=== PATIENT | female | born 1945 | race Caucasian/White ===

== ENCOUNTER 2022-01-06 10:36 | Outpatient (CLI) | payer MEDICARE, BC ==
[~2022-01-06 10:36] MED LIST: LOSA25TA96 PO
== END 2022-01-06 23:59 | disposition home or self-care (01) ==
LOC: VAS 10:36
PROVIDERS: ATTEND Physician Assistant
DX: M79.89 Other specified soft tissue disorders (principal)
CPT/HCPCS: 93971

== ENCOUNTER 2024-04-22 20:53 | Emergency (ER) | payer MEDICARE, BC ==
[~2024-04-22] VITALS: Ht 167.6 cm; Wt 90.9 kg
[~2024-04-22 20:53] MED LIST changes: +LOSA-415 PO; -LOSA25TA96 PO
[2024-04-22 21:40] LABS: BASOPHILS # (AUTO) 0.1 X10'3 (0-0.2); BASOPHILS % (AUTO) 0.9 % (0-1); EOSINOPHILS # (AUTO) 0.1 X10'3 (0-0.9); EOSINOPHILS % (AUTO) 2.1 % (0-6); HEMATOCRIT 41.1 % (35.0-45.0); LYMPHOCYTES # (AUTO) 2.3 X10'3 (1.1-4.8); LYMPHOCYTES % (AUTO) 33.7 % (21-51); MEAN CORPUSCULAR HEMOGLOBIN 31.1 PG (27.0-31.0); MEAN CORPUSCULAR HGB CONC 34.1 g/dL (33.0-36.5); MEAN CORPUSCULAR VOLUME 91.3 FL (78-98); MEAN PLATELET VOLUME 7.8 FL (7.4-10.4); MONOCYTES # (AUTO) 0.5 X10'3 (0-0.9); MONOCYTES % (AUTO) 7.5 % (2-12); NEUTROPHILS # (AUTO) 3.8 X10'3 (1.8-7.7); NEUTROPHILS % (AUTO) 55.8 % (42-75); PLATELET COUNT 228 X10'3 (140-440); RED BLOOD COUNT 4.51 X10'6 (4.20-5.60); RED CELL DISTRIBUTION WIDTH 12.7 % (11.5-14.5); WHITE BLOOD COUNT 6.8 X10'3 (4.5-11.0)
[2024-04-22 22:00] LABS: ALANINE AMINOTRANSFERASE 39 U/L (12-78); ALBUMIN 3.9 G/DL (3.4-5.0); ALBUMIN/GLOBULIN RATIO 1.2 (1.1-1.5); ALKALINE PHOSPHATASE 69 IU/L (46-116); ANION GAP 10 (8-16); ASPARTATE AMINO TRANSFERASE 20 U/L (10-37); BILIRUBIN,TOTAL 0.5 MG/DL (0.1-1.0); BLOOD UREA NITROGEN 18 MG/DL (7-18); BUN/CREATININE RATIO 22.2 (10.0-20.0); CALCIUM 9.3 MG/DL (8.5-10.1); CHLORIDE 103 MMOL/L (99-107); CREATININE 0.81 MG/DL (0.40-0.90); GLUCOSE 97 MG/DL (70-104); POTASSIUM 3.7 MMOL/L (3.5-5.1); SODIUM 141 MMOL/L (135-145); TOTAL CARBON DIOXIDE 27.7 MMOL/L (24-32); TOTAL PROTEIN 7.1 G/DL (6.4-8.2); eCRCL 55 ML/MIN; eGFR 69 ML/MIN
[2024-04-22 22:05] LABS: PRO BRAIN NATRIURETIC PEPTIDE 55 PG/ML (0-450)
[2024-04-23 00:30] VITALS: TEMP 98
[2024-04-23 01:56] VITALS: BP 151/87; PULSE 76; RESP 16; O2SAT 98
== END 2024-04-23 02:01 | disposition home or self-care (01) ==
LOC: ER 20:54
DX: I10 Essential (primary) hypertension (principal); E78.00 Pure hypercholesterolemia, unspecified; R51.9 Headache, unspecified; M54.2 Cervicalgia; M25.519 Pain in unspecified shoulder; Z88.5 Allergy status to narcotic agent; Z90.49 Acquired absence of other specified parts of digestive tract; Z90.710 Acquired absence of both cervix and uterus
CPT/HCPCS: 36415; 71045; 80053; 83880; 84484; 85025; 93005; 99285

== ENCOUNTER 2024-11-24 06:59 | Emergency (ER) | payer BC, MEDICARE ==
[~2024-11-24] VITALS: Ht 167.6 cm; Wt 90.0 kg
[2024-11-24 07:34] LABS: LEUKOCYTE ESTERASE ,URINE MODERATE (Neg); NITRITES, URINE POSITIVE (Neg); OCCULT BLOOD,URINE MODERATE (Neg)
[2024-11-24 07:43] LABS: UA COLLECTION TYPE CLN CATCH MIDSTREAM
[2024-11-24 07:44] LABS: MUCUS STRANDS NONE SEEN /LPF (Neg); SQUAMOUS EPITHELIAL CELL,UR FEW /LPF (FEW)
--- NOTE | 2024-11-24 08:34 | Physician Documentation ---
History of Present Illness ~ Chief Complaint: Urinary Symptoms Stated Complaint: UTI Time Seen by MD: 07:41 Primary Medical Doctor: COSME ROLLE Source: patient, family () HPI 79 yof p/w suprapubic pain dysuria. Just completed 10 day course of penicillin for UTI. Has had 4 infections this year. Medication Reconciliation Allergies: Coded Allergies: codeine (Unverified Allergy, Unknown, 07/15/15) tetracycline (Unverified Allergy, Unknown, 07/15/15) Scheduled Cephalexin (Cephalexin), 1 CAP PO Q6H Losartan Potassium* (Cozaar*), 2 TABLET PO DAILY, (Reported) Past Medical History Past Medical History: High Cholesterol Past Surgical History: appendectomy, cholecystectomy, , hysterectomy, tonsillectomy Alcohol Use: None Review of Systems All Other Systems at this time: Reviewed and Negative Constitutional: Denies: fever Physical Exam Vital Signs: Temperature: 98.0, Source: Oral, Heart Rate: 71, Respiratory Rate: 15, BP: 142/82, Pulse Oximetry: 97, Weight: 90.000 Oxygen Flow Rate: 0 Physical Exam well appearing no distress awake alert oriented abd soft non tender suprapubic ttp. Progress Results/Orders Reviewed/noted all lab results: Yes Results/Orders Orders - KIP OZUNA MD Cult Urine + Fate Ct (11/24/24 07:44) Completed Orders - KIP OZUNA MD Ua W/Microscopic, Cult If Ind (11/24/24 07:00) Vital Signs 11/24/24 11/24/24 07:04 07:45 Temp 98.0 98.0 Pulse 82 71 Resp 16 15 B/P (MAP) 170/89 142/82 (102) Pulse Ox 97 97 O2 Flow Rate 0 0 Laboratory Tests Test 11/24/24 07:00 Urine Specimen Description Cln catch midstream Urine Color Yellow Urine Clarity Clear Urine pH 6.5 Urine Specific Palmer <=1.005 Urine Protein Trace Urine Glucose (UA) 100 H Urine Ketones Negative Urine Occult Blood Moderate H Urine Nitrite Positive H Urine Bilirubin Negative Urine Urobilinogen 1.0 Urine Leukocyte Esterase Moderate H Urine RBC 0-2 Urine WBC 50-100 H Urine Squamous Epithelial Cells Few Urine Bacteria Few Urine Mucus None seen Urine Culture Indicated Indicated Volume Urine Centrifuged 10 ml Urine Comment Medical Decision Making Additional info obtained from: old records Findings urine micro Urinary Diff Dx:Considerations: Include: AAA, Appendicitis, Bowel obstruction Departure Disposition: HOME / SELF CARE / HOMELESS Impression: Primary Impression: UTI (urinary tract infection) Qualified Codes: N30.01 - Acute cystitis with hematuria Additional Instructions: Please return for fever. Follow up at your regularly scheduled appointment with your PCP Referrals: NO PRIMARY CARE PROVIDER (PCP) Prescriptions Cephalexin (Cephalexin) 500 Mg Capsule 1 CAP PO Q6H for 7 Days, #28 CAP Prov: KIP OZUNA MD 11/24/24 Signature Scribe Signature: na Attestation: KIP Zheng MD Nov 24, 2024 08:34
[2024-11-24] MEDS ORDERED: CEPH500C81 PO (08:41)
[2024-11-24 08:47] VITALS: BP 141/84; PULSE 71; RESP 16; TEMP 98.3; O2SAT 97
== END 2024-11-24 08:48 | disposition home or self-care (01) ==
LOC: ER 06:59
DX: N39.0 Urinary tract infection, site not specified (principal); E78.00 Pure hypercholesterolemia, unspecified; Z88.1 Allergy status to other antibiotic agents; Z88.5 Allergy status to narcotic agent; Z90.49 Acquired absence of other specified parts of digestive tract; Z90.710 Acquired absence of both cervix and uterus
CPT/HCPCS: 81001; 87088; 99283